=== PATIENT | female | born 1980 | race Caucasian/White ===

== ENCOUNTER 2017-04-25 09:39 | Emergency (ER) | payer OTHER ==
[2017-04-25 09:52] VITALS: BP 107/72; PULSE 74; RESP 20; TEMP 97.8; O2SAT 100
--- NOTE | 2017-04-25 10:15 | C.PDOC ---
History Of Present Illness 37 y/o female presents to ED with complaints of left knee pain and swelling for 2 days. Patient states 3 weeks ago she fell outside and increased pain and swelling developed 2 days ago. Patient denies new trauma, change in sensation or any other complaints at this time. Time Seen by Provider: 04/25/17 10:04 Chief Complaint (Nursing): Lower Extremity Problem/Injury History Per: Patient History/Exam Limitations: no limitations Onset/Duration Of Symptoms: Days Current Symptoms Are (Timing): Still Present - Knee Description Of Injury: Fell Past Medical History Reviewed: Historical Data, Nursing Documentation, Vital Signs Vital Signs: Last Vital Signs Temp 97.8 F 04/25/17 09:50 Pulse 74 04/25/17 09:50 Resp 20 04/25/17 09:50 BP 107/72 04/25/17 09:50 Pulse Ox 100 04/25/17 13:02 - Medical History PMH: No Chronic Diseases Surgical History: No Surg Hx Family History: States: No Known Family Hx - Social History Hx Tobacco Use: Yes Hx Alcohol Use: Yes Hx Substance Use: No - Immunization History Hx Tetanus Toxoid Vaccination: No Hx Influenza Vaccination: No Hx Pneumococcal Vaccination: No Review Of Systems Except As Marked, All Systems Reviewed And Found Negative. Musculoskeletal: Positive for: Leg Pain (knee) Physical Exam - Physical Exam Appears: Non-toxic, No Acute Distress Skin: Warm, Dry, No Rash, No Ecchymosis Head: Atraumatic, Normacephalic Eye(s): bilateral: Normal Inspection Oral Mucosa: Moist Neck: Normal ROM, Supple Chest: Symmetrical Extremity: Tenderness (mild to left knee), Capillary Refill (<2 seconds), No Deformity, Swelling (Left knee) Extremity: Bilateral: Normal ROM Pulses: Left Dorsalis Pedis: Normal, Right Dorsalis Pedis: Normal Neurological/Psych: Oriented x3, Normal Motor, Normal Sensation Gait: Steady ED Course And Treatment O2 Sat by Pulse Oximetry: 100 (RA) Pulse Ox Interpretation: Normal Medical Decision Making Medical Decision Making: suspect traumatic bursitits - no erythema no ttp. xr neg knee immobilizer given. advise outpt fu and return precautions Disposition - Disposition Referrals: Clinic,Med Surg [Primary Care Provider] - [facility] [Outside] [facility] [Outside] Disposition: HOME/ ROUTINE Disposition Time: 10:42 Condition: STABLE Additional Instructions: follow up with specialist. return to er with worsening symptoms or concerns. Prescriptions: Naproxen [Naprosyn] 500 mg PO BID PRN #14 tab PRN Reason: Pain, Mild (1-3) Instructions: Knee Sprain (ED), Swollen Knee Joint (ED), Knee Immobilizer (ED) Forms: [employer] (Georgian) - Clinical Impression Clinical Impression: Knee injury - Scribe Statement The provider has reviewed the documentation as recorded by the Tamia[address]raudel [address] All medical record entries made by the Tamiaibraudel were at my direction and personally dictated by me. I have reviewed the chart and agree that the record accurately reflects my personal performance of the history, physical exam, medical decision making, and the department course for this patient. I have also personally directed, reviewed, and agree with the discharge instructions and disposition.
[2017-04-25] MEDS ORDERED: Naproxen 550 mg Tab PO STA (10:25)
[2017-04-25] MEDS ORDERED: Naproxen 550 mg Tab PO ONE (10:42)
--- NOTE | 2017-04-25 11:44 | RAD ---
PROCEDURE: Left knee dated 04/25/2017. HISTORY: Pain. COMPARISON: None. FINDINGS: BONES: Normal. No fracture. JOINTS: Normal. No osteoarthritis. JOINT EFFUSION: Suspect trace suprapatellar joint effusion OTHER FINDINGS: None. IMPRESSION: Normal radiographs of the left knee. . Suspect trace suprapatellar joint effusion.
== END 2017-04-25 11:05 | disposition home or self-care (01) ==
LOC: SUPCPDRO 09:39 → C.ER 09:39
DX: S89.92XA Unspecified injury of left lower leg, initial encounter (principal); W18.30XA Fall on same level, unspecified, initial encounter; Y92.89 Other specified places as the place of occurrence of the external cause; Z23 Encounter for immunization